=== PATIENT | male | born 2000 | race Caucasian/White ===

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

== ENCOUNTER 2020-01-05 00:36 | Emergency (ER) | payer OTHER ==
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
[2020-01-05 02:56] VITALS: TEMP 98.2
[2020-01-05 02:58] VITALS: BP 123/88; O2SAT 97
[2020-01-05 05:15] LABS: Urine Blood 1+ (NEG); Urine Glucose NEGATIVE (NEG); Urine Protein NEGATIVE (NEG); Urine Specific Gravity >1.030 (1.005-1.030)
== END 2020-01-05 02:48 | disposition home or self-care (01) ==
LOC: ER 00:36
DX: T83.091A Other mechanical complication of indwelling urethral catheter, initial encounter (principal)
CPT/HCPCS: 81003; 99283

== ENCOUNTER 2020-06-29 14:04 | Emergency (ER) | payer OTHER ==
[2020-06-29 14:59] LABS: Absolute Lymphocytes (CBC) 0.8 K/uL (0.7-4.9); Basophils % 0.2 % (0-1.3); Hematocrit 37.7 % (39.6-49.0); Lymphocytes % 8.2 % (15.3-44.8); MPV 8.2 fL (7.6-11.3); RBC Red Blood Cell Count 4.28 M/uL (4.33-5.43)
[2020-06-29 15:00] LABS: Protime INR 1.01
[2020-06-29 15:15] LABS: ALT/SGPT 21 U/L (12-78); AST/SGOT 21 U/L (15-37); Albumin 4.2 g/dL (3.4-5.0); Alkaline Phosphatase 55 U/L (45-117); BUN Blood Urea Nitrogen 13 mg/dL (7-18); Bicarbonate 25 mmol/L (21-32); Bilirubin Direct 0.2 mg/dL (0-0.2); Glucose Level 96 mg/dL (74-106); Potassium 3.8 mmol/L (3.5-5.1); Protein, Total 7.3 g/dL (6.4-8.2); Sodium Level 141 mmol/L (136-145)
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
[2020-06-29 16:54] LABS: Urine Blood TRACE (NEG); Urine Glucose NEGATIVE (NEG); Urine Protein 1+ (NEG); Urine Specific Gravity 1.025 (1.005-1.030)
[2020-06-29 16:57] LABS: Barbiturates NEGATIVE (NEGATIVE); Benzodiazepines POSITIVE (NEGATIVE); Cocaine NEGATIVE (NEGATIVE); METHAMPHETAM NEGATIVE (NEGATIVE); Methadone NEGATIVE (NEGATIVE); Opiates NEGATIVE (NEGATIVE); Phencyclidine NEGATIVE (NEGATIVE); THC Cannibis POSITIVE (NEGATIVE)
[2020-06-29] MEDS ORDERED: levETIRAcetam 1,000 MG in NA CHLORIDE 0.9% 100 ML IV ONE (17:45)
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
[2020-06-29 18:56] VITALS: TEMP 98.2
[2020-06-29 18:59] VITALS: O2SAT 98
[2020-06-29 19:00] VITALS: BP 109/68
[2020-06-29 21:04] LABS: Platelet Estimate ADEQ; White Blood Cell Scan OK (OK)
[2020-06-29 21:05] LABS: Blood Morphology Comment NOT SEEN (NOT SEEN)
--- NOTE | 2020-06-30 16:11 | EKG ---
Test Date: 2020-06-29 Test Time: 15:07:31 Utility Aircrewman: MARTÍNEZ MEASUREMENT RESULTS: Intervals: Rate: 82 CT: 138 QRSD: 84 QT: 362 QTc: 422 [place]: P: CT: 138 QRS: 145 T: 156 INTERPRETIVE STATEMENTS: Normal sinus rhythm Right axis deviation Nonspecific ST and T wave abnormality Abnormal ECG Compared to ECG 12/19/2016 00:06:28 Right-axis deviation now present ST (T wave) deviation now present Sinus bradycardia no longer present Electronically Signed On 06-30-20 16:08:48 RESEARCH INTERVIEWER by Brennen Menendez
== END 2020-06-29 18:40 | disposition home or self-care (01) ==
LOC: ER 14:04
DX: G40.802 Other epilepsy, not intractable, without status epilepticus (principal)
CPT/HCPCS: 85025; 80048; 36415; 80320; 80329 ×2; 85610; 80076; 80307 ×8; 85730; 81003; 70450; J1953; 93005; 96374; 99284